=== PATIENT | female | born 1930 | race Caucasian/White ===

== ENCOUNTER 2016-11-06 14:18 | Emergency (ER) | payer MEDICARE, BC ==
[~2016-11-06 14:18] MED LIST: AMOXICILLIN875 M1 PO; AZOR 10/20 MG T1 TAB PO; AZOR 5-20 MG T1 EACH PO; BENZONATATE100 M1 PO; FISH OIL 1,0001 CA1 PO; HYDROCODONE PO; LEXAPRO20 M2 PO; NEURONTIN300 M1 PO; NITROFURANTOIN100 M1 PO; NORCO 5-325 TA1 EACH PO; SPIRIVA18 MC1 INH; SYMBICORT 160-1 PUFF INH; SYNTHROID50 MC1 PO; SYNTHROID75 MCG PO; TRIAMCINOLONE A15 G2 TP
[2016-11-06] MEDS ORDERED: LOTENSIN20 M1 PO (14:46)
[2016-11-06] MEDS ORDERED: B COMPLETE1 EACH PO (15:12)
[2016-11-06] MEDS ORDERED: VITAMIN D1000 UNI3 PO (15:12)
[2016-11-06 15:26] LABS: BASO % 0.3 % (0-2); EOS % 2.3 % (0-7); EOSINOPHIL ABSOLUTE COUNT 0.3 tho/cmm (0.0-0.7); HCT-HEMATOCRIT 39.7 % (34.0-49.0); HGB-HEMOGLOBIN 12.7 gm/dl (12.0-15.5); IMMATURE GRANULOCYTES ABSOLUTE 0.05 tho/cmm (0-0.03); IMMATURE GRANULOCYTES PERCENT 0.4 % (0-0.3); LYMPH % 6.2 % (20-45); LYMPH ABSOLUTE COUNT 0.8 tho/cmm (0.8-4.5); MCH (MEAN CORPUSCULAR HGB) 32.3 pg (28.0-32.0); MEAN PLATELET VOLUME 12.4 cmc (9.4-12.4); MONOCYTE ABSOLUTE COUNT 1.5 tho/cmm (0.0-1.2); NEUTROPHIL ABSOLUTE COUNT 10.6 tho/cmm (1.6-8.0); NEUTROPHIL-AUTOMATED 10.6 tho/cmm (1.6-8.0); NEUTROPHILS % 79.8 % (40-80); PLATELET COUNT 129 tho/cmm (150-450); RED BLOOD COUNT 3.93 mil/cmm (4.00-5.20); RED CELL DISTRIBUTION WIDTH 12.5 % (12.4-16.4); WHITE BLOOD COUNT 13.3 tho/cmm (4.0-10.0)
[2016-11-06 15:37] LABS: ALB/GLOB RATIO 0.7 (0.8-2.0); ALBUMIN 2.9 g/dl (3.5-5.0); ALKALINE PHOSPHATASE 66 U/L (33-138); ALT/SGPT 16 U/L (12-78); ANION GAP 9 mmol/L (0-20); AST/SGOT 15 U/L (10-40); BILIRUBIN,TOTAL 0.3 mg/dl (0-1.5); BLOOD UREA NITROGEN 26 mg/dl (6-24); CALCIUM 9.6 mg/dl (8.5-10.5); CARBON DIOXIDE-VENOUS 32 mmol/L (22-32); CHLORIDE 102 mmol/l (96-110); CREATININE 1.16 mg/dl (0.50-1.10); GLUCOSE 108 mg/dL (70-110); SODIUM 139 mmol/L (135-145); eGFR VALUE FOR BLACK 50 mL/Min
== END 2016-11-06 16:44 ==
LOC: EDMED 14:18
PROVIDERS: Emergency Medicine
DX: E86.0 Dehydration (principal); R19.7 Diarrhea, unspecified; R53.1 Weakness; J44.9 Chronic obstructive pulmonary disease, unspecified; E11.9 Type 2 diabetes mellitus without complications; E03.9 Hypothyroidism, unspecified; Z99.81 Dependence on supplemental oxygen; Z79.890 Hormone replacement therapy; Z79.899 Other long term (current) drug therapy; Z87.891 Personal history of nicotine dependence
CPT/HCPCS: J7030